=== PATIENT | male | born 1965 | race Caucasian/White ===

== ENCOUNTER 2017-03-13 11:03 | Inpatient (IN) | payer OTHER ==
[2017-03-13 11:34] VITALS: BMI 17.5
--- NOTE | 2017-03-13 13:46 | HP ---
CIWA Score - CIWA Score Nausea/Vomitin-Mild Nausea/No Vomiting Muscle Tremors: 4-Moderate,w/Arms Extend Anxiety: 4-Mod. Anxious/Guarded Agitation: 1-Slight > Activity Paroxysmal Sweats: 1-Minimal Palms Moist Orientation: 0-Oriented Tacttile Disturbances: 1-Very Mild Itch/Numbness Auditory Disturbances: 1-Very Mild Visual Disturbances: 1-Very Mild Sensitivity Headache: 1-Very Mild CIWA-Ar Total Score: 15 Admission ROS BHS - HPI Chief Complaint: I want to stop drinking - I need help - I get too shakey and then I drink again Allergies/Adverse Reactions: Allergies Allergy/AdvReac Type Severity Reaction Status Date / Time No Known Allergies Allergy Verified 03/13/17 13:39 History of Present Illness: 51 yo gentleman here for detox from alcohol - no seizures. On Methadone program at [facility] - dosed today and brought in bottle for tomorrow. Previously here for detox 2007, was in detox in [place] in 2016. Exam Limitations: Clinical Condition - Ebola screening Have you traveled outside of the country in the last 21 days: No Have you had contact with anyone from an Ebola affected area: No Have you been sick,other than usual withdrawal symptoms: No Do you have a fever: No - Review of Systems Constitutional: Loss of Appetite, Night Sweats, Changes in sleep EENT: reports: Blurred Vision Respiratory: reports: No Symptoms reported Cardiac: reports: No Symptoms Reported GI: reports: Nausea : reports: No Symptoms Reported Musculoskeletal: reports: No Symptoms Reported Integumentary: reports: Dryness Neuro: reports: Headache, Tremors Endocrine: reports: No Symptoms Reported Hematology: reports: No Symptoms Reported Psychiatric: reports: Judgement Intact, Mood/Affect Appropiate, Orientated x3, Anxious Other Systems: Reviewed and Negative Patient History - Patient Medical History Hx Anemia: No Hx Asthma: No Hx Chronic Obstructive Pulmonary Disease (COPD): No Hx Cancer: No Hx Cardiac Disorders: No Hx Congestive Heart Failure: No Hx Hypertension: No Hx Hypercholesterolemia: No Hx Pacemaker: No HX Cerebrovascular Accident: No Hx Seizures: No Hx Dementia: No Hx Diabetes: No Hx Gastrointestinal Disorders: No Hx Liver Disease: No Hx Genitourinary Disorders: No Hx Sexually Transmitted Disorders: No Hx Renal Disease (ESRD): No Hx Thyroid Disease: No Hx Human Immunodeficiency Virus (HIV): No Hx Hepatitis C: Yes (treated with interferon 9 years ago) Hx Depression: No Hx Suicide Attempt: No Hx Bipolar Disorder: No Hx Schizophrenia: No Other Medical History: +PPD - treated with INH - Patient Surgical History Past Surgical History: No - PPD History Previous Implant?: Yes (states received medication) Documented Results: Positive w/o proof PPD to be Administered?: No - Reproductive History Patient is a Female of Child Bearing Age (11 -55 yrs old): No (male) - Smoking Cessation Smoking history: Current every day smoker Have you smoked in the past 12 months: Yes Aproximately how many cigarettes per day: 20 Initiated information on smoking cessation: Yes 'Breaking Loose' booklet given: 03/13/17 (give on floor) - Substance & Tx. History Hx Alcohol Use: Yes Hx Substance Use: Yes Substance Use Type: Alcohol Hx Substance Use Treatment: Yes (hx detox, on MMTP) - Substances Abused Alcohol Route: Oral Frequency: Daily Amount used: 2 pints liquor Age of first use: 20 Date of Last Use: 03/13/17 Family Disease History - Family Disease History Family Disease History: Diabetes: Mother (, etoh), Respiratory: Father ( alive,alzheimers, hx etoh), Other: Grandparent ( etoh grandma), Father, Mother, Sister (two - no medical problems) Admission Physical Exam S - Vital Signs Vital Signs: Vital Signs - 24 hr 03/13/17 11:26 Temperature 96.9 F L Pulse Rate 93 H Respiratory 20 Rate Blood Pressure 134/90 - Physical General Appearance: Yes: Nourished, Appropriately Dressed, Mild Distress HEENTM: Yes: Hearing grossly Normal, Normal ENT Inspection, Normocephalic, Normal Voice Respiratory: Yes: Normal Breath Sounds, No Respiratory Distress Neck: Yes: No masses,lesions,Nodules, Supple Breast: Yes: Breast Exam Deferred Cardiology: Yes: Regular Rhythm, Regular Rate Abdominal: Yes: Flat, Soft Genitourinary: Yes: Frequency Back: Yes: Normal Inspection Musculoskeletal: Yes: full range of Motion, Gait Steady Neurological: Yes: Fully Oriented, Alert, Normal Mood/Affect, Normal Response Integumentary: Yes: Normal Color, Dry, Warm Lymphatic: Yes: Within Normal Limits - Diagnostic (1) Alcohol dependence with uncomplicated withdrawal Current Visit: Yes Status: Chronic (2) Hepatitis C Current Visit: Yes Status: Resolved Qualifiers: Viral hepatitis chronicity: chronic Comment: states he was treated and it is no longer active (3) Methadone maintenance therapy patient Current Visit: Yes Status: Chronic (4) Nicotine dependence Current Visit: Yes Status: Chronic Qualifiers: Nicotine product type: cigarettes Substance use status: uncomplicated Qualified Code(s): F17.210 - Nicotine dependence, cigarettes, uncomplicated (5) PPD positive, treated Current Visit: Yes Status: Chronic Comment: states treated x 3 months, cxr normal Cleared for Admission [facility] - Detox or Rehab [facility] Level of Care: Medically Managed Detox Regimen/Protocol: Librium [facility] Breath Alcohol Content Breath Alcohol Content: 0.267 Urine Drug Screen - Results Drug Screen Negative: No Urine Drug Screen Results: OPI-Opiates, TCA-Tricyclic Antidepress
[2017-03-13] MEDS ORDERED: MENTHOL/PHENOL 1 EACH UD MM PRN (13:49)
[2017-03-13] MEDS ORDERED: guaiFENesin/D-METHORPHAN HB 10 ML UNIT-DOSE CUPS PO PRN (13:49)
[2017-03-13] MEDS ORDERED: IBUPROFEN 400 MG TABLET (FP) PO PRN (13:49)
[2017-03-13] MEDS ORDERED: ACETAMINOPHEN 325 MG TABLET (FP) PO PRN (13:49)
[2017-03-13] MEDS ORDERED: hydrOXYzine PAMOATE 50 MG CAPSULE (FP) PO PRN (13:49)
[2017-03-13] MEDS ORDERED: MAG HYDROX/AL HYDROX/SIMETH 30 ML UNIT-DOSE CUP PO PRN (13:49)
[2017-03-13] MEDS ORDERED: P-EPHED 60MG/TRIPROLIDI 2.5MG TABLET PO PRN (13:49)
[2017-03-13] MEDS ORDERED: NICOTINE POLACRILEX 4 MG GUM BUC PRN (13:49)
[2017-03-13] MEDS ORDERED: MAGNESIUM HYDROX 2400MG/30ML ORAL SUSPENSION 30 ML CUP PO PRN (13:49)
[2017-03-13] MEDS ORDERED: chlordiazePOXIDE HCL 25 MG CAPSULE PO PRN (13:49)
[2017-03-13] MEDS ORDERED: LOPERAMIDE HCL 2 MG CAPSULE PO PRN (13:49)
[2017-03-13] MEDS ORDERED: MAGNESIUM CITRATE 300 ML BOTTLE PO PRN (13:49)
[2017-03-13] MEDS ORDERED: chlordiazePOXIDE HCL 25 MG CAPSULE PO ONE (15:15)
[2017-03-13] MEDS: chlordiazePOXIDE HCL 25 MG CAPSULE PO SCH ×2 (18:30→22:20)
[2017-03-13] MEDS: NICOTINE 21 MG/24 HOURS TOPICAL PATCH TD SCH (18:41)
[2017-03-13 19:18] LABS: URINE APPEARANCE CLEAR; URINE BILIRUBIN NEGATIVE (NEGATIVE); URINE COLOR LTYELLOW; URINE GLUCOSE (UA) NEGATIVE (NEGATIVE); URINE KETONE TRACE (NEGATIVE); URINE LEUK ESTERASE NEGATIVE (NEGATIVE); URINE NITRITE NEGATIVE (NEGATIVE); URINE UROBILINOGEN NEGATIVE E.U./dl (0.2-1.0)
[2017-03-13 19:19] LABS: URINE BLOOD 2+ (NEGATIVE); URINE PROTEIN 1+ (NEGATIVE)
[2017-03-13 19:21] LABS: URINE RBC 5 /hpf (0-3); URINE WBC <1 /hpf (3-5)
--- NOTE | 2017-03-13 19:46 | PN ---
S Progress Note Note: Methadone 58mg discontinued as facility does not have that strength. 55mg ordered, pending verification of programme participation at clinic.
[2017-03-13] MEDS ORDERED: cloNIDine HCL 0.1 MG TABLET PO ONE (21:34)
[2017-03-13] MEDS: THIAMINE HCL 100 MG TABLET (FP) PO SCH (22:20)
[2017-03-13] MEDS: diphenhydrAMINE HCL 50 MG CAPSULE PO PRN (22:22)
[2017-03-14] MEDS: chlordiazePOXIDE HCL 25 MG CAPSULE PO SCH ×4 (05:56→22:00)
[2017-03-14] MEDS ORDERED: METHADONE HCL 10 MG TABLET ONE (05:59)
[2017-03-14] MEDS ORDERED: METHADONE HCL 40 MG DISPERSABLE TABLET ONE (05:59)
[2017-03-14] MEDS ORDERED: METHADONE HCL 5 MG TABLET ONE (06:00)
[2017-03-14] MEDS ORDERED: METHADONE HCL 10 MG TABLET PO ONE (06:00)
[2017-03-14] MEDS ORDERED: METHADONE PO ONE (06:00)
[2017-03-14] MEDS ORDERED: METHADONE 40 MG, METHADONE 10 MG, METHADONE 5 MG PO SCH (06:00)
[2017-03-14] MEDS ORDERED: METHADONE HCL 10 MG TABLET PO SCH (06:00)
--- NOTE | 2017-03-14 09:31 | PN ---
S CIWA - CIWA Score Nausea/Vomitin Muscle Tremors: 4-Moderate,w/Arms Extend Anxiety: 4-Mod. Anxious/Guarded Agitation: 4-Moderately Restless Paroxysmal Sweats: 3 Orientation: 0-Oriented Tacttile Disturbances: 0-None Auditory Disturbances: 0-None Visual Disturbances: 0-None Headache: 0-None Present CIWA-Ar Total Score: 17 BHS Progress Note (SOAP) Subjective: Anxiety,tremor,sweating,interrupted sleep,restless Objective: 03/14/17 09:30 Vital Signs - 8 hr 03/14/17 03/14/17 03:30 06:00 Temperature 98.1 F Pulse Rate 65 Respiratory 18 16 Rate Blood Pressure 143/86 Laboratory Tests 03/13/17 19:03 Urine Color Ltyellow Urine Appearance Clear Urine pH 7.0 Ur Specific [place] 1.005 Urine Protein 1+ H Urine Glucose (UA) Negative Urine Ketones Trace H Urine Blood 2+ H Urine Nitrite Negative Urine Bilirubin Negative Urine Urobilinogen Negative Ur Leukocyte Esterase Negative Urine RBC 5 Urine WBC <1 Assessment: 03/14/17 09:31 Withdrawal sx. Plan: Continue detox
[2017-03-14] MEDS: PRENATAL VITAMINS W/ FOLIC ACID TABLET (FP) PO SCH (10:09)
[2017-03-14] MEDS: NICOTINE 21 MG/24 HOURS TOPICAL PATCH TD SCH (10:09)
[2017-03-14 11:09] LABS: MCHC 33.2 g/dl (32.0-35.9); MEAN CELL VOLUME 96.6 fl (80-96); MEAN PLT VOLUME 9.2 fl (7.5-11.1); PLATELET COUNT 82 K/MM3 (134-434); RDW 13.5 % (11.9-15.9); WHITE BLOOD COUNT 3.7 K/mm3 (4.0-10.0)
[2017-03-14 11:25] LABS: ALBUMIN 3.6 g/dl (3.4-5.0); ALK PHOS 122 U/L (45-117); ANION GAP 11 (8-16); BILIRUBIN,TOTAL 1.1 mg/dL (0.2-1.0); CALCIUM 9.1 mg/dL (8.5-10.1); CO2 28 mmol/L (21-32); COCKROFT - GAULT 133.44; CREATININE 0.5 mg/dL (0.7-1.3); GLUCOSE,RANDOM 151 mg/dL (74-106); SGOT/AST 214 U/L (15-37); SGPT/ALT 112 U/L (12-78); TOT PROT 7.6 g/dl (6.4-8.2)
--- NOTE | 2017-03-14 12:44 | EKG ---
Test Reason : Blood Pressure : / mmHG Vent. Rate : 077 BPM Atrial Rate : 077 BPM P-R Int : 160 ms QRS Dur : 082 ms QT Int : 440 ms P-R-T Axes : 076 036 047 degrees QTc Int : 497 ms NORMAL SINUS RHYTHM PROLONGED QT NO PREVIOUS ECGS AVAILABLE Confirmed by ARUN ZAYAS MD ([id number]) on 03/14/2017 12:44:30 PM Referred By: Confirmed By:ARUN ZAYAS MD
[2017-03-14] MEDS: THIAMINE HCL 100 MG TABLET (FP) PO SCH (21:59)
[2017-03-14] MEDS: diphenhydrAMINE HCL 50 MG CAPSULE PO PRN (21:59)
[2017-03-15] MEDS ORDERED: METHADONE HCL 10 MG TABLET ONE (04:47)
[2017-03-15] MEDS ORDERED: METHADONE HCL 40 MG DISPERSABLE TABLET ONE (04:47)
[2017-03-15] MEDS: chlordiazePOXIDE HCL 25 MG CAPSULE PO SCH ×2 (05:15→10:17)
[2017-03-15] MEDS ORDERED: METHADONE 40 MG, METHADONE 20 MG PO SCH (06:00)
[2017-03-15] MEDS ORDERED: METHADONE HCL 40 MG DISPERSABLE TABLET PO SCH (06:00)
[2017-03-15] MEDS: NICOTINE 21 MG/24 HOURS TOPICAL PATCH TD SCH (10:17)
[2017-03-15] MEDS: PRENATAL VITAMINS W/ FOLIC ACID TABLET (FP) PO SCH (10:17)
--- NOTE | 2017-03-15 10:37 | PN ---
[facility] CIWA - CIWA Score Nausea/Vomitin-No Nausea/No Vomiting Muscle Tremors: 3 Anxiety: 3 Agitation: 3 Paroxysmal Sweats: 3 Orientation: 0-Oriented Tacttile Disturbances: 0-None Auditory Disturbances: 0-None Visual Disturbances: 0-None Headache: 1-Very Mild CIWA-Ar Total Score: 13 S Progress Note (SOAP) Subjective: body aches headache interrupted sleep shakes sweats Objective: 03/15/17 10:34 Vital Signs Temperature 97.0 F L 03/15/17 09:19 Pulse Rate 101 H 03/15/17 09:19 Respiratory Rate 20 03/15/17 09:19 Blood Pressure 113/91 03/15/17 09:19 O2 Sat by Pulse Oximetry (%) Laboratory Tests 03/13/17 03/14/17 03/14/17 19:03 07:00 07:00 WBC 3.7 L RBC 4.26 Hgb 13.6 Hct 41.1 MCV 96.6 H MCHC 33.2 RDW 13.5 Plt Count 82 L MPV 9.2 Sodium 136 Potassium 3.7 Chloride 97 L Carbon Dioxide 28 Anion Gap 11 BUN 9 Creatinine 0.5 L Creat Clearance w eGFR > 60 Random Glucose 151 H Calcium 9.1 Total Bilirubin 1.1 H AST 214 H ALT 112 H Alkaline Phosphatase 122 H Total Protein 7.6 Albumin 3.6 Urine Color Ltyellow Urine Appearance Clear Urine pH 7.0 Ur Specific [place] 1.005 Urine Protein 1+ H Urine Glucose (UA) Negative Urine Ketones Trace H Urine Blood 2+ H Urine Nitrite Negative Urine Bilirubin Negative Urine Urobilinogen Negative Ur Leukocyte Esterase Negative Urine RBC 5 Urine WBC <1 RPR Titer 03/14/17 07:00 WBC RBC Hgb Hct MCV MCHC RDW Plt Count MPV Sodium Potassium Chloride Carbon Dioxide Anion Gap BUN Creatinine Creat Clearance w eGFR Random Glucose Calcium Total Bilirubin AST ALT Alkaline Phosphatase Total Protein Albumin Urine Color Urine Appearance Urine pH Ur Specific [place] Urine Protein Urine Glucose (UA) Urine Ketones Urine Blood Urine Nitrite Urine Bilirubin Urine Urobilinogen Ur Leukocyte Esterase Urine RBC Urine WBC RPR Titer Nonreactive elevated ast/alt; d/c tylenol repeat labs increase fluids Assessment: 03/15/17 10:35 withdrawals sx Plan: continue detox increase fluids motrin prn request Benadryl or Vistarilf prn qhs f/u repeated labs
--- NOTE | 2017-03-15 16:12 | CONSULT ---
[facility] Psychiatric Consult - Data Date of interview: 03/15/17 Admission source: [facility] Identifying data: This is 51 years old male with no psychiatric hospitalization history intoxicated with: Opioids and Nicotine, on Methadone 60mg p/day Substance Abuse History: - Smoking Cessation. Smoking history: Current every day smoker. Have you smoked in the past 12 months: Yes. Aproximately how many cigarettes per day: 20. Initiated information on smoking cessation: Yes. ' Breaking Loose' booklet given: 03/13/17 (give on floor). - Substance & Tx. History. Hx Alcohol Use: Yes. Hx Substance Use: Yes. Substance Use Type: Alcohol. Hx Substance Use Treatment: Yes (hx detox, on MMTP). - Substances Abused. Alcohol. Route: Oral. Frequency: Daily. Amount used: 2 pints liquor. Age of first use: 20. Date of Last Use: 03/13/17 Medical History: MMTP 60mg per day Psychiatric History: Denies Physical/Sexual Abuse/Trauma History: Denies Additional Comment: Doxepin 100mg po qhs Mental Status Exam - Mental Status Exam Alert and Oriented to: Person Cognitive Function: Fair Patient Appearance: Well Groomed Mood: Apprehensive Affect: Appropriate Patient Behavior: Cooperative Speech Pattern: Appropriate Voice Loudness: Mildly Soft/Quiet Thought Process: Goal Oriented Thought Disorder: Being Controlled Hallucinations: Denies Suicidal Ideation: Denies Homicidal Ideation: Denies Insight/Judgement: Fair Sleep: Difficulty falling asleep Appetite: Weight loss Muscle strength/Tone: Normal Gait/Station: Normal Additional Comments: Doxepin 100mg po qhs Psychiatric Findings - Problem List ([place] 1, 2,3) (1) Alcohol dependence with uncomplicated withdrawal Current Visit: Yes Status: Chronic (2) Methadone maintenance therapy patient Current Visit: Yes Status: Chronic (3) Nicotine dependence Current Visit: Yes Status: Chronic Qualifiers: Nicotine product type: cigarettes Substance use status: uncomplicated Qualified Code(s): F17.210 - Nicotine dependence, cigarettes, uncomplicated (4) Drug-induced mood disorder Current Visit: Yes Status: Acute (5) Opioid-induced sleep disorder Current Visit: Yes Status: Acute - Initial Treatment Plan Initial Treatment Plan: Doxepin 100mg po qhs
[2017-03-15] MEDS: chlordiazePOXIDE 5 MG CAPSULE PO SCH ×2 (17:37→22:40)
[2017-03-15] MEDS: diphenhydrAMINE HCL 50 MG CAPSULE PO PRN (22:40)
[2017-03-15] MEDS: DOXEPIN HCL 50 MG CAPSULE PO SCH (22:40)
[2017-03-15] MEDS: THIAMINE HCL 100 MG TABLET (FP) PO SCH (22:40)
[2017-03-16] MEDS ORDERED: METHADONE HCL 40 MG DISPERSABLE TABLET ONE (05:03)
[2017-03-16] MEDS ORDERED: METHADONE HCL 10 MG TABLET ONE (05:04)
[2017-03-16] MEDS: METHADONE 40 MG, METHADONE 20 MG PO SCH (06:08)
[2017-03-16] MEDS: chlordiazePOXIDE 5 MG CAPSULE PO SCH ×2 (06:08→10:14)
[2017-03-16] MEDS: PRENATAL VITAMINS W/ FOLIC ACID TABLET (FP) PO SCH (10:13)
[2017-03-16] MEDS: NICOTINE 21 MG/24 HOURS TOPICAL PATCH TD SCH (10:14)
--- NOTE | 2017-03-16 10:33 | PN ---
BHS Progress Note (SOAP) Subjective: interrupted sleep, sweats Objective: 03/16/17 10:31 Vital Signs Temperature 97.3 F L 03/16/17 09:51 Pulse Rate 97 H 03/16/17 09:51 Respiratory Rate 18 03/16/17 09:51 Blood Pressure 98/69 03/16/17 09:51 O2 Sat by Pulse Oximetry (%) Laboratory Tests 03/13/17 03/14/17 03/14/17 19:03 07:00 07:00 WBC 3.7 L RBC 4.26 Hgb 13.6 Hct 41.1 MCV 96.6 H MCHC 33.2 RDW 13.5 Plt Count 82 L MPV 9.2 Sodium 136 Potassium 3.7 Chloride 97 L Carbon Dioxide 28 Anion Gap 11 BUN 9 Creatinine 0.5 L Creat Clearance w eGFR > 60 Random Glucose 151 H Calcium 9.1 Total Bilirubin 1.1 H AST 214 H ALT 112 H Alkaline Phosphatase 122 H Total Protein 7.6 Albumin 3.6 Urine Color Ltyellow Urine Appearance Clear Urine pH 7.0 Ur Specific [place] 1.005 Urine Protein 1+ H Urine Glucose (UA) Negative Urine Ketones Trace H Urine Blood 2+ H Urine Nitrite Negative Urine Bilirubin Negative Urine Urobilinogen Negative Ur Leukocyte Esterase Negative Urine RBC 5 Urine WBC <1 RPR Titer 03/14/17 07:00 WBC RBC Hgb Hct MCV MCHC RDW Plt Count MPV Sodium Potassium Chloride Carbon Dioxide Anion Gap BUN Creatinine Creat Clearance w eGFR Random Glucose Calcium Total Bilirubin AST ALT Alkaline Phosphatase Total Protein Albumin Urine Color Urine Appearance Urine pH Ur Specific [place] Urine Protein Urine Glucose (UA) Urine Ketones Urine Blood Urine Nitrite Urine Bilirubin Urine Urobilinogen Ur Leukocyte Esterase Urine RBC Urine WBC RPR Titer Nonreactive pt aox3 in nad lying in bed Assessment: 03/16/17 10:32 withdrawal sx's elevated transaminases 03/16/17 10:32 Plan: cont. detox increase fluids f/up pending labs d/c in am
[2017-03-16 10:54] LABS: SGOT/AST 333 U/L (15-37); SGPT/ALT 291 U/L (12-78)
[2017-03-16 11:11] LABS: INR 1.04 (0.82-1.09); PROTHROMBIN TIME (PATIENT) 11.5 SEC (9.98-11.88)
[2017-03-16] MEDS: chlordiazePOXIDE HCL 10 MG CAPSULE PO SCH ×2 (17:19→23:15)
[2017-03-16] MEDS: DOXEPIN HCL 50 MG CAPSULE PO SCH (23:15)
[2017-03-16] MEDS: THIAMINE HCL 100 MG TABLET (FP) PO SCH (23:15)
[2017-03-17] MEDS ORDERED: METHADONE HCL 40 MG DISPERSABLE TABLET ONE (04:35)
[2017-03-17] MEDS ORDERED: METHADONE HCL 10 MG TABLET ONE (04:36)
[2017-03-17] MEDS: METHADONE 40 MG, METHADONE 20 MG PO SCH (06:09)
[2017-03-17] MEDS: chlordiazePOXIDE HCL 10 MG CAPSULE PO SCH (06:09)
[2017-03-17 06:49] VITALS: BP 116/70; PULSE 67; TEMP 96.8
--- NOTE | 2017-03-17 08:54 | DS ---
[facility] Detox Discharge Summary Admission Date: 03/13/17 Discharge Date: 03/17/17 - History Present History: Alcohol Dependence, MMTP - Physical Exam Results Vital Signs: Vital Signs Temperature 96.8 F L 03/17/17 06:49 Pulse Rate 67 03/17/17 06:49 Respiratory Rate 16 03/17/17 06:49 Blood Pressure 116/70 03/17/17 06:49 O2 Sat by Pulse Oximetry (%) - Treatment Hospital Course: Detox Protocol Followed, Detoxed Safely, Responded well, Discharged Condition Good, Rehab Referral Accepted - Medication Discharge Medications: Ambulatory Orders Methadone HCl 58 mg PO DAILY 03/13/17 Doxepin HCl [[place] -] 100 mg PO HS #30 cap 03/15/17 - Diagnosis (1) Drug-induced mood disorder Current Visit: Yes Status: Acute (2) Opioid-induced sleep disorder Current Visit: Yes Status: Chronic (3) Alcohol dependence with uncomplicated withdrawal Current Visit: Yes Status: Chronic (4) Methadone maintenance therapy patient Current Visit: Yes Status: Chronic (5) Nicotine dependence Current Visit: Yes Status: Chronic Qualifiers: Nicotine product type: cigarettes Substance use status: uncomplicated Qualified Code(s): F17.210 - Nicotine dependence, cigarettes, uncomplicated (6) PPD positive, treated Current Visit: Yes Status: Chronic (7) Hepatitis C Current Visit: Yes Status: Resolved Qualifiers: Viral hepatitis chronicity: chronic - AMA Did Patient Leave Against Medical Advice: No
--- NOTE | 2017-03-17 09:21 | PN ---
BHS Progress Note Note: pt was made aware of elevated liver enzymes; pt was given lab result and encouraged to see his PMD for follow up. Pt in agreement.
[2017-03-17] MEDS: PRENATAL VITAMINS W/ FOLIC ACID TABLET (FP) PO SCH (09:39)
[2017-03-17] MEDS: NICOTINE 21 MG/24 HOURS TOPICAL PATCH TD SCH (09:40)
== END 2017-03-17 09:58 | disposition home or self-care (01) | DRG 773 ==
LOC: YASAS 11:03 → Y6N 14:59
PROVIDERS: ADMIT Internal Medicine; ATTEND Internal Medicine Addiction Medicine
PROC: HZ2ZZZZ Detoxification Services for Substance Abuse Treatment (ICD-10-PCS; principal; 2017-03-13)
DX: F10.230 Alcohol dependence with withdrawal, uncomplicated (principal); F11.20 Opioid dependence, uncomplicated; F11.282 Opioid dependence with opioid-induced sleep disorder; F17.210 Nicotine dependence, cigarettes, uncomplicated; F19.24 Other psychoactive substance dependence with psychoactive substance-induced mood disorder; B18.2 Chronic viral hepatitis C; R94.5 Abnormal results of liver function studies; R74.0 Nonspecific elevation of levels of transaminase and lactic acid dehydrogenase [LDH]
CPT/HCPCS: 36415; 71020-TC; 80053; 81003; 81015; 84450; 84460; 85027; 85610; 86593; 93005; 93010

== ENCOUNTER 2018-11-04 11:28 | Inpatient (IN) | payer OTHER ==
[2018-11-04 12:33] VITALS: BMI 24.7
--- NOTE | 2018-11-04 12:54 | HP ---
COWS - Scale Resting Pulse: 0= [place] 80 or Below Restless Observation: 0= Sits Still Pupil Size: 0= Normal to Room Light Bone or Joint Aches: 0= None Runny Nose/ Eye Tearin= None GI Upset > 30mins: 0= None Tremor Observation: 0= None Yawning Observation: 0= None Anxiety or Irritability: 0= None Goose Flesh Skin: 0=Smooth Skin CIWA Score Nausea/Vomitin-No Nausea/No Vomiting Muscle Tremors: None Anxiety: 0-No Anxiety, at Ease Agitation: 0-Normal Activity Paroxysmal Sweats: No Perspiration Orientation: 0-Oriented Tacttile Disturbances: 0-None Auditory Disturbances: 0-None Visual Disturbances: 0-None Headache: 0-None Present CIWA-Ar Total Score: 0 - Admission Criteria [facility] Guidelines: Admission for Medically Managed Detox: Requires at least one of the followin. CIWA greater than 12 2. Seizures within the past 24 hours 3. Delirium tremens within the past 24 hours 4. Hallucinations within the past 24 hours 5. Acute intervention needed for co occurring medical disorder 6. Acute intervention needed for co occurring psychiatric disorder 7. Severe withdrawal that cannot be handled at a lower level of care (continued vomiting, continued diarrhea, abnormal vital signs) requiring intravenous medication and/or fluids 8. Admission ROS [facility] Allergies/Adverse Reactions: Allergies Allergy/AdvReac Type Severity Reaction Status Date / Time No Known Allergies Allergy Verified 03/13/17 13:39 History of Present Illness: patient here requesting detox from etoh use , reports 2-3 pints/day , currently intoxicated , first age of use 18 , reports tremors if not drinking , + blackouts , + fall yesterday off sofa , no injuries , latest use this morning , current DIANA 0.369 UTOX + THC , + MTD tobacco : 1/2 ppd , tried to quit in the past, requesting nrt w/ patch PMHX : denies PSHX : denies PSYch :denies Meds : On [facility] x 10 years , current daily dose 65 mg Exam Limitations: Intoxication - Ebola screening Have you traveled outside of the country in the last 21 days: No Have you had contact with anyone from an Ebola affected area: No Have you been sick,other than usual withdrawal symptoms: No Do you have a fever: No - Review of Systems Constitutional: No Symptoms Reported EENT: reports: Other (glasses) Respiratory: reports: No Symptoms reported Cardiac: reports: No Symptoms Reported GI: reports: No Symptoms Reported : reports: No Symptoms Reported Musculoskeletal: reports: No Symptoms Reported Integumentary: reports: No Symptoms Reported Neuro: reports: No Symptoms reported Psychiatric: reports: Orientated x3, Anxious Patient History - Patient Medical History Hx Anemia: No Hx Asthma: No Hx Chronic Obstructive Pulmonary Disease (COPD): No Hx Cancer: No Hx Cardiac Disorders: No Hx Congestive Heart Failure: No Hx Hypertension: No Hx Hypercholesterolemia: No Hx Pacemaker: No HX Cerebrovascular Accident: No Hx Seizures: No Hx Dementia: No Hx Diabetes: No Hx Gastrointestinal Disorders: No Hx Liver Disease: No Hx Genitourinary Disorders: No Hx Sexually Transmitted Disorders: No Hx Renal Disease (ESRD): No Hx Thyroid Disease: No Hx Human Immunodeficiency Virus (HIV): No Hx Hepatitis C: Yes (treated with interferon 9 years ago) Hx Depression: No Hx Suicide Attempt: No Hx Bipolar Disorder: No Hx Schizophrenia: No - Patient Surgical History Past Surgical History: No Hx Neurologic Surgery: No Hx Cataract Extraction: No Hx Cardiac Surgery: No Hx Lung Surgery: No Hx Breast Surgery: No Hx Breast Biopsy: No Hx Abdominal Surgery: No Hx Appendectomy: No Hx Cholecystectomy: No Hx Genitourinary Surgery: No Hx Section: No Hx Orthopedic Surgery: No Anesthesia Reaction: No - Smoking Cessation Smoking history: Current every day smoker Have you smoked in the past 12 months: Yes Aproximately how many cigarettes per day: 20 Hx Chewing Tobacco Use: No Initiated information on smoking cessation: No - Substances Abused Alcohol Route: Oral Frequency: Daily Amount used: vodka 2 pints daily Age of first use: 18 Date of Last Use: 11/04/18 Heroin Route: Inhalation Frequency: Daily Amount used: 1 bag daily Age of first use: 17 Date of Last Use: 11/04/18 Family Disease History - Family Disease History Family Disease History: Diabetes: Grandparent ( etoh grandma), Mother ( , etoh), Respiratory: Father (alive,alzheimers, hx etoh), Other: Grandparent, Father, Mother, Sister (two - no medical problems) Admission Physical Exam BHS - Vital Signs Vital Signs: Vital Signs - 24 hr 11/04/18 12:30 Temperature 97.5 F L Pulse Rate 80 Respiratory 18 Rate Blood Pressure 135/91 - Physical General Appearance: Yes: Disheveled, Alcohol on Breath, Intoxicated, Anxious HEENTM: Yes: EOMI, Hearing grossly Normal, Normocephalic, Normal Voice, Other ( poor dentition , many missing teeth) Respiratory: Yes: Chest Non-Tender, Lungs Clear, Normal Breath Sounds Neck: Yes: No masses,lesions,Nodules, Trachea in good position Breast: Yes: Breast Exam Deferred Cardiology: Yes: Regular Rhythm, Regular Rate, S1, S2 Abdominal: Yes: Within Normal Limits Genitourinary: Yes: Within Normal Limits Back: Yes: Normal Inspection Musculoskeletal: Yes: full range of Motion, Gait Steady Extremities: Yes: Normal Capillary Refill, Normal Inspection Neurological: Yes: Motor Strength 5/5 - Diagnostic (1) Alcohol dependence with uncomplicated withdrawal Current Visit: Yes Status: Acute (2) Methadone maintenance therapy patient Current Visit: No Status: Chronic (3) Nicotine dependence Current Visit: Yes Status: Chronic Qualifiers: Nicotine product type: cigarettes Substance use status: uncomplicated Qualified Code(s): F17.210 - Nicotine dependence, cigarettes, uncomplicated (4) Alcohol intoxication Current Visit: Yes Status: Acute Qualifiers: Complication of substance-induced condition: uncomplicated Qualified Code(s ): F10.920 - Alcohol use, unspecified with intoxication, uncomplicated BHS Breath Alcohol Content Breath Alcohol Content: 0.369 Urine Drug Screen - Results Drug Screen Negative: No Urine Drug Screen Results: THC-Marijuana, MTD-Methadone
[2018-11-04] MEDS ORDERED: guaiFENesin/D-METHORPHAN HB 10 ML UNIT-DOSE CUPS PO PRN (12:59)
[2018-11-04] MEDS ORDERED: MAGNESIUM HYDROX 2400MG/30ML ORAL SUSPENSION 30 ML CUP PO PRN (12:59)
[2018-11-04] MEDS ORDERED: MAG HYDROX/AL HYDROX/SIMETH 30 ML UNIT-DOSE CUP PO PRN (12:59)
[2018-11-04] MEDS ORDERED: NICOTINE POLACRILEX 2 MG GUM BUC PRN (12:59)
[2018-11-04] MEDS ORDERED: P-EPHED 60MG/TRIPROLIDI 2.5MG TABLET PO PRN (12:59)
[2018-11-04] MEDS ORDERED: chlordiazePOXIDE HCL 25 MG CAPSULE PO PRN (12:59)
[2018-11-04] MEDS ORDERED: IBUPROFEN 400 MG TABLET (FP) PO PRN (12:59)
[2018-11-04] MEDS ORDERED: MENTHOL/PHENOL 1 EACH UD MM PRN (12:59)
[2018-11-04] MEDS ORDERED: MAGNESIUM CITRATE 300 ML BOTTLE PO PRN (12:59)
[2018-11-04] MEDS ORDERED: ACETAMINOPHEN 325 MG TABLET (FP) PO PRN (12:59)
[2018-11-04] MEDS: chlordiazePOXIDE HCL 25 MG CAPSULE PO SCH ×2 (16:50→22:14)
--- NOTE | 2018-11-04 18:52 | CONSULT ---
[facility] Psychiatric Consult - Data Date of interview: 11/04/18 Admission source: [facility] Identifying data: Readmission to [facility] for this 53 y/o male seeking detoxification treatment, on , for heroin and alcohol dependence. Patient is single without dependents, domiciled,unemployed and supported on welfare. Substance Abuse History: Patient admits to consuming 2-3 pints of vodka on a daily basis (onset of abuse at age 17-18). Smokes one pack of cigarettes daily. Medical History: Hepatitis C. Psychiatric History: No reported history of psychiatric hospitalizations. Diagnosed with MDD and Anxiety Disorder. Patient is currently on methadone maintenance (65 mg/day) at the [facility] program ([address] [place] [address] in the [place]. Mr Sergio reports two months of non-adherence to his regimen consisting of prozac 20 mg/day + trazodone 100 mg/hs (last refills at [facility] issued on 08/15/18). No history of suicide attempts. Physical/Sexual Abuse/Trauma History: Patient denies. Additional Comment: Urine Drug Screen Results: THC-Marijuana, MTD-Methadone. Noted. Mental Status Exam - Mental Status Exam Alert and Oriented to: Time, Place, Person Cognitive Function: Good Patient Appearance: Well Groomed Mood: Nervous, Anxious, Apprehensive Affect: Mood Congruent Patient Behavior: Fatigued, Cooperative Speech Pattern: Clear, Appropriate Voice Loudness: Normal Thought Process: Goal Oriented Thought Disorder: Not Present Hallucinations: Denies Suicidal Ideation: Denies Homicidal Ideation: Denies Insight/Judgement: Poor Sleep: Poorly, Difficulty falling asleep Appetite: Good Muscle strength/Tone: Normal Gait/Station: Normal Psychiatric Findings - Problem List ([place] 1, 2,3) (1) Alcohol dependence with uncomplicated withdrawal Current Visit: Yes Status: Acute (2) Opioid dependence on agonist therapy Current Visit: Yes Status: Chronic (3) Nicotine dependence Current Visit: Yes Status: Chronic Qualifiers: Nicotine product type: cigarettes Substance use status: uncomplicated Qualified Code(s): F17.210 - Nicotine dependence, cigarettes, uncomplicated (4) Drug-induced mood disorder Current Visit: Yes Status: Chronic (5) Insomnia Current Visit: Yes Status: Chronic (6) Non-compliant patient Current Visit: Yes Status: Chronic - Initial Treatment Plan Initial Treatment Plan: Psychoeducation. Detoxification. Sleep hygiene. AA/NA meetings. Insomnia is addressed with trazodone 1oo mg po hs. Patient is made aware of the risk of priapism. Consent (verbal) granted to MD. Nick.
[2018-11-04] MEDS: THIAMINE HCL 100 MG TABLET (FP) PO SCH (22:15)
[2018-11-04] MEDS: traZODone HCL 100 MG TABLET (FP) PO SCH (22:15)
[2018-11-05] MEDS: chlordiazePOXIDE HCL 25 MG CAPSULE PO SCH ×4 (05:11→22:02)
[2018-11-05] MEDS ORDERED: METHADONE HCL 10 MG TABLET PO SCH (09:15)
[2018-11-05] MEDS ORDERED: METHADONE HCL 5 MG TABLET ONE (09:44)
[2018-11-05] MEDS ORDERED: METHADONE HCL 10 MG TABLET ONE (09:44)
[2018-11-05] MEDS ORDERED: METHADONE HCL 40 MG DISPERSABLE TABLET ONE (09:44)
[2018-11-05] MEDS: METHADONE 40 MG, METHADONE 20 MG, METHADONE 5 MG PO SCH (10:17)
[2018-11-05] MEDS: NICOTINE 7 MG/24 HOURS TOPICAL PATCH TD SCH (10:17)
[2018-11-05] MEDS: PRENATAL VITAMINS W/ FOLIC ACID TABLET (FP) PO SCH (10:17)
--- NOTE | 2018-11-05 10:37 | PN ---
[facility] CIWA - CIWA Score Nausea/Vomitin Muscle Tremors: 2 Anxiety: 2 Agitation: 2 Paroxysmal Sweats: 1-Minimal Palms Moist Orientation: 0-Oriented Tacttile Disturbances: 1-Very Mild Itch/Numbness Auditory Disturbances: 1-Very Mild Visual Disturbances: 1-Very Mild Sensitivity Headache: 1-Very Mild CIWA-Ar Total Score: 13 [facility] Progress Note (SOAP) Subjective: Interrupted sleep, generalized body aches Objective: 11/05/18 10:35 Last Vital Signs Temp Pulse Resp BP Pulse Ox 96.3 F L 78 16 146/89 11/05/18 09:37 11/05/18 09:37 11/05/18 09:37 11/05/18 09:37 Labs pending Assessment: 11/05/18 10:36 Withdrawal sx Plan: Continue detox CXR ordered for positive PPD status
[2018-11-05 10:43] LABS: HEMOGLOBIN 13.4 GM/dL (11.7-16.9); MCH 31.1 pg (25.7-33.7); MEAN CELL VOLUME 97.2 fl (80-96); MEAN PLT VOLUME 9.2 fl (7.5-11.1); PLATELET COUNT 100 K/MM3 (134-434); RBC 4.32 M/mm3 (4.00-5.60)
[2018-11-05 11:09] LABS: ALBUMIN 4.5 g/dl (3.4-5.0); ALK PHOS 111 U/L (45-117); ANION GAP 12 MMOL/L (8-16); BLOOD UREA NITROGEN 16 mg/dL (7-18); CALCIUM 8.6 mg/dL (8.5-10.1); CHLORIDE 104 mmol/L (98-107); CO2 24 mmol/L (21-32); CREATININE 0.7 mg/dL (0.55-1.3); GLUCOSE,RANDOM 62 mg/dL (74-106); POTASSIUM 3.5 mmol/L (3.5-5.1); SGOT/AST 292 U/L (15-37); SGPT/ALT 104 U/L (13-61); SODIUM 140 mmol/L (136-145); TOT PROT 8.5 g/dl (6.4-8.2)
[2018-11-05] MEDS: THIAMINE HCL 100 MG TABLET (FP) PO SCH (22:02)
[2018-11-05] MEDS: MELATONIN 5 MG TABLETS PO PRN (22:02)
[2018-11-05] MEDS: traZODone HCL 100 MG TABLET (FP) PO SCH (22:02)
[2018-11-06] MEDS ORDERED: METHADONE HCL 40 MG DISPERSABLE TABLET ONE (04:12)
[2018-11-06] MEDS ORDERED: METHADONE HCL 5 MG TABLET ONE (04:12)
[2018-11-06] MEDS ORDERED: METHADONE HCL 10 MG TABLET ONE (04:12)
[2018-11-06] MEDS: METHADONE 40 MG, METHADONE 20 MG, METHADONE 5 MG PO SCH (05:47)
[2018-11-06] MEDS: chlordiazePOXIDE HCL 25 MG CAPSULE PO SCH ×2 (05:47→10:19)
--- NOTE | 2018-11-06 08:38 | PN ---
S Progress Note Note: Patient requests to be continued on Prozac 20 mg po daily. According to pharmacy claims, script for Prozac 20 mg #30 was last filled on 08/15/18 at [facility]. Prozac 20 mg po daily ordered for patient
[2018-11-06] MEDS: NICOTINE 7 MG/24 HOURS TOPICAL PATCH TD SCH (10:17)
[2018-11-06] MEDS: FLUoxetine HCL 20 MG CAPSULE (FP) PO SCH (10:18)
[2018-11-06] MEDS: PRENATAL VITAMINS W/ FOLIC ACID TABLET (FP) PO SCH (10:18)
[2018-11-06] MEDS ORDERED: hydrOXYzine PAMOATE 50 MG CAPSULE (FP) PO PRN (10:36)
--- NOTE | 2018-11-06 15:47 | PN ---
[facility] CIWA - CIWA Score Nausea/Vomitin-Mild Nausea/No Vomiting Muscle Tremors: 2 Anxiety: 2 Agitation: 2 Paroxysmal Sweats: 2 Orientation: 0-Oriented Tacttile Disturbances: 0-None Auditory Disturbances: 0-None Visual Disturbances: 0-None Headache: 0-None Present CIWA-Ar Total Score: 9 S Progress Note (SOAP) Subjective: Tremor, chills, sweating, interrupted sleep, anxious Objective: 11/06/18 15:43 Last Vital Signs Temp Pulse Resp BP Pulse Ox 97.6 F 64 18 128/88 11/06/18 13:14 11/06/18 13:14 11/06/18 13:14 11/06/18 13:14 Laboratory Tests 11/05/18 11/05/18 11/05/18 05:30 05:30 05:30 WBC 5.0 RBC 4.32 Hgb 13.4 Hct 42.0 MCV 97.2 H MCH 31.1 MCHC 32.0 RDW 15.0 D Plt Count 100 L D MPV 9.2 Sodium 140 Potassium 3.5 Chloride 104 Carbon Dioxide 24 Anion Gap 12 BUN 16 Creatinine 0.7 Creat Clearance w eGFR > 60 Random Glucose 62 L Calcium 8.6 Total Bilirubin 1.0 AST 292 H ALT 104 H Alkaline Phosphatase 111 Total Protein 8.5 H Albumin 4.5 RPR Titer Nonreactive HIV 1&2 Antibody Screen HIV P24 Antigen 11/05/18 10:30 WBC RBC Hgb Hct MCV MCH MCHC RDW Plt Count MPV Sodium Potassium Chloride Carbon Dioxide Anion Gap BUN Creatinine Creat Clearance w eGFR Random Glucose Calcium Total Bilirubin AST ALT Alkaline Phosphatase Total Protein Albumin RPR Titer HIV 1&2 Antibody Screen Negative HIV P24 Antigen Negative Labs reviewed: AST 292, ALT 104 Assessment: 11/06/18 15:45 Withdrawal symptoms Elevated LFTs noted Plan: Continue detox Encouraged PO water intake Vistaril ordered prn for anxiety Elevated LFTs: repeat AST and ALT
[2018-11-06] MEDS: chlordiazePOXIDE 5 MG CAPSULE PO SCH ×2 (17:28→22:18)
[2018-11-06] MEDS: THIAMINE HCL 100 MG TABLET (FP) PO SCH (22:17)
[2018-11-06] MEDS: traZODone HCL 100 MG TABLET (FP) PO SCH (22:18)
[2018-11-06] MEDS: MELATONIN 5 MG TABLETS PO PRN (22:18)
[2018-11-07] MEDS ORDERED: METHADONE HCL 40 MG DISPERSABLE TABLET ONE (04:47)
[2018-11-07] MEDS ORDERED: METHADONE HCL 10 MG TABLET ONE (04:47)
[2018-11-07] MEDS ORDERED: METHADONE HCL 5 MG TABLET ONE (04:47)
[2018-11-07] MEDS: chlordiazePOXIDE 5 MG CAPSULE PO SCH ×2 (05:06→10:15)
[2018-11-07] MEDS: METHADONE 40 MG, METHADONE 20 MG, METHADONE 5 MG PO SCH (05:06)
--- NOTE | 2018-11-07 09:35 | PN ---
[facility] Progress Note (SOAP) Subjective: feeling better no tremor no gi distress sleep better at night requests 21 mg nicotine patches due to smoke pack + cigarette per day Objective: 11/07/18 09:34 Vital Signs Temperature 97.7 F 11/07/18 05:56 Pulse Rate 64 11/07/18 05:56 Respiratory Rate 16 11/07/18 05:56 Blood Pressure 121/68 11/07/18 05:56 O2 Sat by Pulse Oximetry (%) Laboratory Last Values WBC 5.0 K/mm3 (4.0-10.0) 11/05/18 05:30 RBC 4.32 M/mm3 (4.00-5.60) 11/05/18 05:30 Hgb 13.4 GM/dL (11.7-16.9) 11/05/18 05:30 Hct 42.0 % (35.4-49) 11/05/18 05:30 MCV 97.2 fl (80-96) H 11/05/18 05:30 MCH 31.1 pg (25.7-33.7) 11/05/18 05:30 MCHC 32.0 g/dl (32.0-35.9) 11/05/18 05:30 RDW 15.0 % (11.9-15.9) D 11/05/18 05:30 Plt Count 100 K/MM3 (134-434) L D 11/05/18 05:30 MPV 9.2 fl (7.5-11.1) 11/05/18 05:30 Sodium 140 mmol/L (136-145) 11/05/18 05:30 Potassium 3.5 mmol/L (3.5-5.1) 11/05/18 05:30 Chloride 104 mmol/L (98-107) 11/05/18 05:30 Carbon Dioxide 24 mmol/L (21-32) 11/05/18 05:30 Anion Gap 12 MMOL/L (8-16) 11/05/18 05:30 BUN 16 mg/dL (7-18) 11/05/18 05:30 Creatinine 0.7 mg/dL (0.55-1.3) 11/05/18 05:30 Creat Clearance w eGFR > 60 (>60) 11/05/18 05:30 Random Glucose 62 mg/dL (74-106) L 11/05/18 05:30 Calcium 8.6 mg/dL (8.5-10.1) 11/05/18 05:30 Total Bilirubin 1.0 mg/dL (0.2-1) 11/05/18 05:30 AST 292 U/L (15-37) H 11/05/18 05:30 ALT 104 U/L (13-61) H 11/05/18 05:30 Alkaline Phosphatase 111 U/L (45-117) 11/05/18 05:30 Total Protein 8.5 g/dl (6.4-8.2) H 11/05/18 05:30 Albumin 4.5 g/dl (3.4-5.0) 11/05/18 05:30 RPR Titer Nonreactive (NONREACTIVE) 11/05/18 05:30 HIV 1&2 Antibody Screen Negative 11/05/18 10:30 HIV P24 Antigen Negative 11/05/18 10:30 lab noted repeat ast alt pending 11/07/18 09:36 Assessment: 11/07/18 09:36 mild withdrawal sx 11/07/18 09:36 chronic liver enzyme elevation 11/07/18 09:37 methadone maintenance program Plan: medically supervised detox patient agrees to follow up with methadone program for his liver enzyme monitoring
[2018-11-07] MEDS: FLUoxetine HCL 20 MG CAPSULE (FP) PO SCH (10:15)
[2018-11-07] MEDS: NICOTINE 21 MG/24 HOURS TOPICAL PATCH TD SCH (10:15)
[2018-11-07] MEDS: PRENATAL VITAMINS W/ FOLIC ACID TABLET (FP) PO SCH (10:15)
[2018-11-07 10:30] LABS: SGOT/AST 373 U/L (15-37); SGPT/ALT 269 U/L (13-61)
[2018-11-07] MEDS: chlordiazePOXIDE HCL 10 MG CAPSULE PO SCH ×2 (17:35→22:13)
[2018-11-07] MEDS: MELATONIN 5 MG TABLETS PO PRN (22:13)
[2018-11-07] MEDS: traZODone HCL 100 MG TABLET (FP) PO SCH (22:13)
[2018-11-07] MEDS: THIAMINE HCL 100 MG TABLET (FP) PO SCH (22:13)
[2018-11-08] MEDS ORDERED: METHADONE HCL 40 MG DISPERSABLE TABLET ONE (04:36)
[2018-11-08] MEDS ORDERED: METHADONE HCL 5 MG TABLET ONE (04:36)
[2018-11-08] MEDS ORDERED: METHADONE HCL 10 MG TABLET ONE (04:36)
[2018-11-08] MEDS: chlordiazePOXIDE HCL 10 MG CAPSULE PO SCH ×2 (05:19→10:22)
[2018-11-08] MEDS: METHADONE 40 MG, METHADONE 20 MG, METHADONE 5 MG PO SCH (05:19)
[2018-11-08 10:19] VITALS: BP 100/66; PULSE 62; TEMP 96.9
[2018-11-08] MEDS: FLUoxetine HCL 20 MG CAPSULE (FP) PO SCH (10:20)
[2018-11-08] MEDS: PRENATAL VITAMINS W/ FOLIC ACID TABLET (FP) PO SCH (10:20)
[2018-11-08] MEDS: NICOTINE 21 MG/24 HOURS TOPICAL PATCH TD SCH (10:23)
--- NOTE | 2018-11-08 11:23 | DS ---
[facility] Detox Discharge Summary Admission Date: 11/04/18 Discharge Date: 11/08/18 - History Present History: Alcohol Dependence Additional Comments: 53 years old male admitted on 11/04/18 for alcohol withdrawal stabilization completed alcohol detox regimen tolerated well alert no acute distress aftercare mis atc / [facility] part / community 12 step self support group - Physical Exam Results Vital Signs: Vital Signs Temperature 96.9 F L 11/08/18 10:18 Pulse Rate 62 11/08/18 10:18 Respiratory Rate 16 11/08/18 10:18 Blood Pressure 100/66 11/08/18 10:18 O2 Sat by Pulse Oximetry (%) Pertinent Admission Physical Exam Findings: alcohol withdrawal sx Vital Signs Temperature 96.9 F L 11/08/18 10:18 Pulse Rate 62 11/08/18 10:18 Respiratory Rate 16 11/08/18 10:18 Blood Pressure 100/66 11/08/18 10:18 O2 Sat by Pulse Oximetry (%) Laboratory Last Values WBC 5.0 K/mm3 (4.0-10.0) 11/05/18 05:30 RBC 4.32 M/mm3 (4.00-5.60) 11/05/18 05:30 Hgb 13.4 GM/dL (11.7-16.9) 11/05/18 05:30 Hct 42.0 % (35.4-49) 11/05/18 05:30 MCV 97.2 fl (80-96) H 11/05/18 05:30 MCH 31.1 pg (25.7-33.7) 11/05/18 05:30 MCHC 32.0 g/dl (32.0-35.9) 11/05/18 05:30 RDW 15.0 % (11.9-15.9) D 11/05/18 05:30 Plt Count 100 K/MM3 (134-434) L D 11/05/18 05:30 MPV 9.2 fl (7.5-11.1) 11/05/18 05:30 Sodium 140 mmol/L (136-145) 11/05/18 05:30 Potassium 3.5 mmol/L (3.5-5.1) 11/05/18 05:30 Chloride 104 mmol/L (98-107) 11/05/18 05:30 Carbon Dioxide 24 mmol/L (21-32) 11/05/18 05:30 Anion Gap 12 MMOL/L (8-16) 11/05/18 05:30 BUN 16 mg/dL (7-18) 11/05/18 05:30 Creatinine 0.7 mg/dL (0.55-1.3) 11/05/18 05:30 Creat Clearance w eGFR > 60 (>60) 11/05/18 05:30 Random Glucose 62 mg/dL (74-106) L 11/05/18 05:30 Calcium 8.6 mg/dL (8.5-10.1) 11/05/18 05:30 Total Bilirubin 1.0 mg/dL (0.2-1) 11/05/18 05:30 AST 373 U/L (15-37) H 11/07/18 07:00 ALT 269 U/L (13-61) H 11/07/18 07:00 Alkaline Phosphatase 111 U/L (45-117) 11/05/18 05:30 Total Protein 8.5 g/dl (6.4-8.2) H 11/05/18 05:30 Albumin 4.5 g/dl (3.4-5.0) 11/05/18 05:30 RPR Titer Nonreactive (NONREACTIVE) 11/05/18 05:30 HIV 1&2 Antibody Screen Negative 11/05/18 10:30 HIV P24 Antigen Negative 11/05/18 10:30 lab noted patient agrees to share lab result with methadone maintenance program provider chronic liver enzyme management discuss alcohol related liver enzyme elevation and negative consequences liver insults discuss ativan for alcohol detox over librium strong recommend sobriety to avoid further liver insults - Treatment Hospital Course: Detox Protocol Followed, Detoxed Safely, Responded well, Discharged Condition Good, Rehab Referral Accepted Patient has Accepted a Rehab Referral to: [facility] 12 step self help support group - Medication Discharge Medications: Ambulatory Orders NK [No Known Home Medication] 11/04/18 - Diagnosis (1) Alcohol dependence with uncomplicated withdrawal Status: Acute (2) LFT elevation Status: Chronic (3) Drug-induced mood disorder Status: Suspected (4) Hepatitis C Status: Chronic Qualifiers: Viral hepatitis chronicity: unspecified Hepatic coma status: without hepatic coma Qualified Code(s): B19.20 - Unspecified viral hepatitis C without hepatic coma (5) Methadone maintenance therapy patient Status: Chronic (6) Nicotine dependence Status: Acute Qualifiers: Nicotine product type: cigarettes Substance use status: in withdrawal Qualified Code(s): F17.213 - Nicotine dependence, cigarettes, with withdrawal - AMA Did Patient Leave Against Medical Advice: No
== END 2018-11-08 11:05 | disposition home or self-care (01) | DRG 773 ==
LOC: YASAS 11:28 → Y3N 14:13
PROC: HZ2ZZZZ Detoxification Services for Substance Abuse Treatment (ICD-10-PCS; principal; 2018-11-04)
DX: F10.230 Alcohol dependence with withdrawal, uncomplicated (principal); F10.220 Alcohol dependence with intoxication, uncomplicated; F11.20 Opioid dependence, uncomplicated; F17.213 Nicotine dependence, cigarettes, with withdrawal; F19.24 Other psychoactive substance dependence with psychoactive substance-induced mood disorder; F32.9 Major depressive disorder, single episode, unspecified; B19.20 Unspecified viral hepatitis C without hepatic coma; R94.5 Abnormal results of liver function studies; G47.00 Insomnia, unspecified; Z91.14 Patient's other noncompliance with medication regimen
CPT/HCPCS: 36415; 80053; 84450; 84460; 85027; 86593; 87389